=== PATIENT | female | born 1955 | race American Indian/Alaskan Native ===

== ENCOUNTER 2017-08-12 22:15 | Emergency (ER) | payer OTHER ==
[2017-08-12 22:26] VITALS: BP 156/80
[2017-08-12] MEDS ORDERED: ZOFRAN ODT PO ONE (23:04)
[2017-08-12] MEDS ORDERED: NORCO 10/325 PO ONE (23:04)
[2017-08-12] MEDS ORDERED: NORCO 10/325 ONE (23:06)
[2017-08-12] MEDS ORDERED: ZOFRAN ODT ONE (23:06)
--- NOTE | 2017-08-12 23:06 | Emergency Department Report ---
Upper Extremity - HPI Chief Complaint: Extremity Injury, Upper Stated Complaint: RT HAND PAIN Time Seen by Provider: 08/12/17 22:35 Upper Extremity: Right Hand Occurred When: Today Symptoms: Yes Pain with Movement, No Deformity, No Limited Range of Movement, No Numbness, No Weakness, No Swelling, No Bruising/Ecchymosis, No Laceration or Abrasion Other History: 62-year-old female past medical history diabetes, arthritis, hypertension, gout presents with complaint of acute on chronic right hand wrist and elbow pain. Patient states that worst pain is in hand. Denies fevers or chills denies any falls or direct trauma. Patient is awake alert and oriented 3 accompanied by at bedside. States that this episode is similar to previous episodes of pain. ED Review of Systems ROS: Stated complaint: RT HAND PAIN Other details as noted in HPI Constitutional: denies: chills, fever Eyes: denies: eye pain, eye discharge, vision change ENT: denies: ear pain, throat pain Respiratory: denies: cough, shortness of breath, wheezing Cardiovascular: denies: chest pain, palpitations Endocrine: no symptoms reported Gastrointestinal: denies: abdominal pain, nausea, diarrhea Genitourinary: denies: urgency, dysuria, discharge Musculoskeletal: as per HPI, arthralgia. denies: back pain, joint swelling Skin: denies: rash, lesions Neurological: denies: headache, weakness, paresthesias Psychiatric: denies: anxiety, depression Hematological/Lymphatic: denies: easy bleeding, easy bruising ED Past Medical Hx - Past Medical History Hx Hypertension: Yes Hx Diabetes: Yes Hx Arthritis: Yes Additional medical history: Tendinitis Right arm - Surgical History Past Surgical History?: Yes Additional Surgical History: Right and Left Knee replacement, hysterectomy, Hernia repair, Tonsillectomy, - Social History Smoking Status: Never Smoker Substance Use Type: None - Medications Home Medications: Home Medications Medication Instructions Recorded Confirmed Last Taken Type Gabapentin [Neurontin] 300 mg PO Q8HR #90 capsule 08/13/17 Unknown Rx traMADol [Ultram 50 MG tab] 50 mg PO Q6HR PRN #20 tablet 08/13/17 Unknown Rx Upper Extremity Exam - Exam General: Vital signs noted. No distress. Alert and acting appropriately. Head and Torso: No HEENT Abnormality, No Neck Tenderness, No Chest/Lungs Abnormality, No Abdominal Tenderness, No Back Tenderness Shoulder Exam: Yes Normal Range of Motion in Shoulder, No Shoulder Tenderness, No Clavicle Tenderness, No Shoulder Deformity, No AC Joint Tenderness Arm Exam: No Arm/Humerus Tenderness, No Arm Deformity Elbow: No Elbow Tenderness, No Elbow Deformity Forearm: No Forearm Tenderness, No Forearm Deformity, No Pain with Pronation, No Pain with Supination Wrist: Yes Normal ROM in Wrist, No Wrist Tenderness, No Wrist Deformity, No Snuffbox Tenderness, No Pain with Axial Thumb Compression Hand: Yes Normal ROM in Digit(s) (wrist flexion and extension intact, range of motion in all fingers intact), No Hand Tenderness, No Hand Deformity, No Digit Tenderness, No Digit(s) Deformity, No Tendon Dysfunction CMS Exam: Yes Normal Distal Pulses (distal capillary refill radial and ulnar pulses strong to palpation), Yes Normal Capillary Refill, Yes Normal Distal Sensation, No Broken Skin ED Course Vital Signs 08/12/17 22:19 Temperature 98 F Pulse Rate 92 H Respiratory 20 Rate Blood Pressure 156/80 O2 Sat by Pulse 98 Oximetry ED Medical Decision Making - Medical Decision Making A/P: Acute on chronic right upper extremity joint pain, medication refill 1-significant reduction in pain. some rthritic changes on x-rays. Right upper extremity neurovascularly intact on clinical exam distal pulses and sensation fully intact. strong distal cap refill and pulses radial, ulnar and brachial on exam. pt has had episodes similar to this several times in the past. No signs of cellulitis or significant joint swelling 2-short course tramadol when necessary. Refill on gabapentin 3-patient to follow up with primary care doctor Critical care attestation.: If time is entered above; I have spent that time in minutes in the direct care of this critically ill patient, excluding procedure time. ED Disposition Clinical Impression: Arthralgia Qualifiers: Joint pain location: wrist Laterality: right Qualified Code(s): M25.531 - Pain in right wrist Disposition: - TO HOME OR SELFCARE Is pt being admited?: No Does the pt Need Aspirin: No Condition: Stable Instructions: Diabetic Neuropathy (ED), Arthralgia (ED) Prescriptions: Gabapentin [Neurontin] 300 mg PO Q8HR #90 capsule traMADol [Ultram 50 MG tab] 50 mg PO Q6HR PRN #20 tablet PRN Reason: Pain Referrals: [facility] [Outside] - 3-5 Days [facility] [Outside] - 3-5 Days Forms: Work/School Release Form(ED) Time of Disposition: 00:05
--- NOTE | 2017-08-12 23:17 | XRay Report ---
FINAL REPORT EXAM: XR FOREARM RT HISTORY: pain TECHNIQUE: Right forearm two views PRIORS: None. FINDINGS: No fracture is identified. The joint spaces are within normal limits. No focal bony lesion identified. No radiopaque foreign body seen. IMPRESSION: Negative no acute abnormality.
--- NOTE | 2017-08-13 | XRay Report ---
FINAL REPORT PROCEDURE: Right hand. TECHNIQUE: Three views. HISTORY: Right hand pain. COMPARISON: No prior studies are available for comparison. FINDINGS: The bones appear intact without fracture or dislocation. The joint spaces appear satisfactory. The soft tissues are unremarkable. IMPRESSION: No significant abnormality.
== END 2017-08-13 00:13 | disposition home or self-care (01) ==
LOC: ED 22:15
DX: M25.531 Pain in right wrist (principal); M25.521 Pain in right elbow; G89.29 Other chronic pain; I10 Essential (primary) hypertension; E11.9 Type 2 diabetes mellitus without complications; M19.90 Unspecified osteoarthritis, unspecified site; Z90.710 Acquired absence of both cervix and uterus; Z90.89 Acquired absence of other organs; Z96.653 Presence of artificial knee joint, bilateral
CPT/HCPCS: 99283; Q0162

== ENCOUNTER 2017-12-30 10:49 | Emergency (ER) | payer MEDICARE, OTHER ==
[2017-12-30 11:02] VITALS: BP 127/62
--- NOTE | 2017-12-30 12:03 | Emergency Department Report ---
ED General Adult HPI - General Chief complaint: Weakness Stated complaint: BLEEDING FROM LEG Time Seen by Provider: 12/30/17 11:47 Source: patient, EMS Mode of arrival: Stretcher Limitations: No Limitations - History of Present Illness Initial comments: 62-year-old female history of varicose veins has had spontaneous bleeding from one of them previously 4. Today she had a spontaneous oozing the last about 30 minutes. She denied heavy bleeding this symptom is now resolved after they have pressure. Patient's complaints of dizziness no lightheadedness no large amount of blood loss -: Gradual, minutes(s), hour(s) Location: right, lower extremity Radiation: non-radiation Severity scale (0 -10): 0 Consistency: intermittent, now resolved Associated Symptoms: denies other symptoms. denies: confusion, chest pain, cough, diaphoresis, fever/chills, headaches, loss of appetite, malaise, nausea/ vomiting, rash, seizure, shortness of breath, syncope, weakness - Related Data Previous Rx's Medication Instructions Recorded Last Taken Type Gabapentin [Neurontin] 300 mg PO Q8HR #90 capsule 08/13/17 Unknown Rx traMADol [Ultram 50 MG tab] 50 mg PO Q6HR PRN #20 tablet 08/13/17 Unknown Rx Allergies Allergy/AdvReac Type Severity Reaction Status Date / Time No Known Allergies Allergy Unverified 08/12/17 22:26 ED Review of Systems ROS: Stated complaint: BLEEDING FROM LEG Other details as noted in HPI Comment: All other systems reviewed and negative Constitutional: denies: diaphoresis, fever, malaise Eyes: denies: eye discharge, vision change ENT: denies: dental pain, hearing loss, epistaxis Respiratory: denies: shortness of breath, SOB with exertion, SOB at rest, stridor Cardiovascular: denies: chest pain, palpitations, dyspnea on exertion, orthopnea Endocrine: denies: excessive sweating, flushing, intolerance to cold, intolerance to heat Gastrointestinal: denies: abdominal pain, nausea, vomiting Musculoskeletal: denies: back pain, joint swelling, arthralgia Skin: denies: pruritus Neurological: denies: numbness, paresthesias, confusion Hematological/Lymphatic: denies: easy bruising ED Past Medical Hx - Past Medical History Hx Hypertension: Yes Hx Diabetes: Yes Hx Arthritis: Yes Additional medical history: Tendinitis Right arm, high cholesterol - Surgical History Additional Surgical History: Right and Left Knee replacement, hysterectomy, Hernia repair, Tonsillectomy, - Social History Smoking Status: Never Smoker Substance Use Type: Alcohol - Medications Home Medications: Home Medications Medication Instructions Recorded Confirmed Last Taken Type Gabapentin [Neurontin] 300 mg PO Q8HR #90 capsule 08/13/17 Unknown Rx traMADol [Ultram 50 MG tab] 50 mg PO Q6HR PRN #20 tablet 08/13/17 Unknown Rx ED Physical Exam - General Limitations: No Limitations General appearance: alert, in no apparent distress, anxious - Head Head exam: Present: atraumatic, normocephalic - Eye Eye exam: Present: PERRL, EOMI - ENT ENT exam: Present: normal exam, normal orophraynx - Neck Neck exam: Present: normal inspection. Absent: tenderness, meningismus - Respiratory Respiratory exam: Present: normal lung sounds bilaterally. Absent: respiratory distress, wheezes, rales, rhonchi, stridor, chest wall tenderness, accessory muscle use, decreased breath sounds, prolonged expiratory - Cardiovascular Cardiovascular Exam: Present: regular rate, normal rhythm - GI/Abdominal GI/Abdominal exam: Present: soft. Absent: distended, tenderness, guarding, rebound, rigid, mass, pulsatile mass - Extremities Exam Extremities exam: Present: normal inspection, normal capillary refill. Absent: calf tenderness - Back Exam Back exam: Present: normal inspection. Absent: CVA tenderness (R), CVA tenderness (L), muscle spasm, paraspinal tenderness, vertebral tenderness - Neurological Exam Neurological exam: Present: alert, oriented X3, CN II-XII intact. Absent: motor sensory deficit - Skin Skin exam: Present: other (varicose veins no active bleeding is appreciated for range of motion neurovascular intact of the right lower extremity the remaining extremities within normal limits) ED Course Vital Signs 12/30/17 10:51 Temperature 98.7 F Pulse Rate 85 Respiratory 16 Rate Blood Pressure 127/62 O2 Sat by Pulse 99 Oximetry ED Medical Decision Making - Medical Decision Making Hemostatic dressing was applied no active bleeding appreciated, pt will be referred to her vascular doctor for evaluation if recurrent. she says she has seen vascular for stripping in past Critical care attestation.: If time is entered above; I have spent that time in minutes in the direct care of this critically ill patient, excluding procedure time. ED Disposition Clinical Impression: Bleeding from varicose vein Disposition: DC-01 TO HOME OR SELFCARE Is pt being admited?: No Condition: Stable Instructions: Varicose Veins (ED) Additional Instructions: Laboratory immediately call 911 no alarming symptoms or pressure to the area if it rebleeds recurrent mainly to the ED or otherwise leave the clotting dressing on overnight and see your regular doctor in 2 days and your vascular surgeon Referrals: PRIMARY CARE, [Primary Care Provider] - 3-5 Days Time of Disposition: 12:11
== END 2017-12-30 12:36 | disposition home or self-care (01) ==
LOC: ED 10:49
DX: I86.8 Varicose veins of other specified sites (principal); I10 Essential (primary) hypertension; E11.9 Type 2 diabetes mellitus without complications; M19.90 Unspecified osteoarthritis, unspecified site
CPT/HCPCS: 99283